=== PATIENT | male | born 1965 | race Caucasian/White ===

== ENCOUNTER → 2016-06-17 | Outpatient (CLI) | payer BC, MEDICARE ==
--- OUTSIDE RECORDS SUMMARY | 2016-06-17 11:23 | XMS REPORT | Continuity of Care Document ---
Author Author [facility] Address Unknown Phone Unavailable Allergies Medications Problems Date Dx Coded Attending Type Code Diagnosis Diagnosed By 03/17/2008 FATOUMATA BLOOD DO 272.4 HYPERLIPIDEMIA UNSPECIFIED 03/17/2008 FATOUMATA BLOOD DO 401.9 UNSPECIFIED ESSENTIAL HYPERTENSION 03/17/2008 FATOUMATA BLOOD DO 414.00 CORONARY ATHEROSCLEROSIS OF UNSPECIFIED TYPE OF VESSEL [place] 03/17/2008 FATOUMATA BLOOD DO 466.0 BRONCHITIS, ACUTE 04/28/2008 FATOUMATA BLOOD DO 786.50 CHEST PAIN 09/20/2008 FATOUMATA BLOOD DO 272.2 HYPERLIPIDEMIA, MIXED 09/20/2008 FATOUMATA BLOOD DO 401.1 HYPERTENSION, BENIGN ESSENTIAL 03/16/2009 FATOUMATA BLOOD DO 461.9 ACUTE SINUSITIS, UNSPECIFIED Procedures Results Encounters ACCT No. Visit Date/Time Discharge Status Pt. Type Provider Facility Loc./Unit Complaint [id number] 03/16/2009 13:51:00 03/16/2009 23: 59:59 CLS Outpatient FATOUMTAA BLOOD DO
== END ==
LOC: LAB 11:19
PROVIDERS: ATTEND Internal Medicine
DX: L73.9 Follicular disorder, unspecified (principal)
CPT/HCPCS: 87081

== ENCOUNTER 2020-03-18 16:21 | Emergency (ER) | payer BC, MEDICARE ==
[~2020-03-18] VITALS: Ht 177.8 cm; Wt 90.9 kg
--- NOTE | 2020-03-18 16:38 | ED Chest Pain ---
General Chief Complaint: Chest Pain Stated Complaint: CP Source: patient Exam Limitations: no limitations History of Present Illness Date Seen by Provider: Mar 18, 2020 Time Seen by Provider: 16:34 Initial Comments to ER with lower central chest pain that started this morning and is worse with laying flat and breathing. No shortness of breath no cough no fever no chills. Does have a history of a coronary stent [place] [address] Lima. Timing/Duration: intermittent Severity/Quality: moderate Activities at Onset: none ASA po MIXING PAN TENDER: No NTG SL MIXING PAN TENDER: No Allergies and Home Medications Allergies Coded Allergies: No Known Drug Allergies (Verified Allergy, Unknown, 03/08/08) Patient Home Medication List Home Medication List Reviewed: Yes Review of Systems Review of Systems Constitutional: see HPI; No chills, No fever EENTM: No Symptoms Reported Respiratory: See HPI; Denies Cough Cardiovascular: See HPI, Chest Pain Gastrointestinal: No Symptoms Reported Genitourinary: No Symptoms Reported Musculoskeletal: no symptoms reported Skin: no symptoms reported Psychiatric/Neurological: No Symptoms Reported Endocrine: No Symptoms Reported Hematologic/Lymphatic: No Symptoms Reported Past Imqueov-Cywjjg-Fzdldz Hx Patient Social History Recent Foreign Travel: No Contact w/Someone Who Travel: No Past Medical History Reproductive Disorders: No Physical Exam Vital Signs Vital Signs - First Documented 03/18/20 16:22 Pulse 96 Resp 18 B/P (MAP) 162/83 (109) Pulse Ox 96 O2 Delivery Room Air Capillary Refill : Height, Weight, BMI Height: '" Weight: lbs. oz. kg; BMI Method: General Appearance: No Apparent Distress, WD/WN Neck: Full Range of Motion, Normal Inspection Respiratory: No Accessory Muscle Use, No Respiratory Distress Gastrointestinal: Normal Bowel Sounds, Non Tender, Soft Extremity: Normal Capillary Refill, Normal Inspection Neurologic/Psychiatric: Alert, Oriented x3 Skin: Normal Color, Warm/Dry Progress/Results/Core Measures Results/Orders Lab Results Laboratory Tests Test 03/18/20 16:29 03/18/20 18:30 Range/Units White Blood Count 13.0 H 4.3-11.0 10^3/uL Red Blood Count 4.20 L 4.30-5.52 10^6/uL Hemoglobin 13.7 13.3-17.7 g/dL Hematocrit 40 40-54 % Mean Corpuscular Volume 96 80-99 fL Mean Corpuscular Hemoglobin 33 25-34 pg Mean Corpuscular Hemoglobin Concent 34 32-36 g/dL Red Cell Distribution Width 12.3 10.0-14.5 % Platelet Count 168 130-400 10^3/uL Mean Platelet Volume 11.3 9.0-12.2 fL Immature Granulocyte % (Auto) 1 % Neutrophils (%) (Auto) 70 42-75 % Lymphocytes (%) (Auto) 20 12-44 % Monocytes (%) (Auto) 9 0-12 % Eosinophils (%) (Auto) 0 0-10 % Basophils (%) (Auto) 0 0-10 % Neutrophils # (Auto) 9.1 H 1.8-7.8 10^3/uL Lymphocytes # (Auto) 2.6 1.0-4.0 10^3/uL Monocytes # (Auto) 1.1 H 0.0-1.0 10^3/uL Eosinophils # (Auto) 0.0 0.0-0.3 10^3/uL Basophils # (Auto) 0.0 0.0-0.1 10^3/uL Immature Granulocyte # (Auto) 0.1 0.0-0.1 10^3/uL Prothrombin Time 14.0 12.2-14.7 SEC INR Comment 1.0 0.8-1.4 Activated Partial Thromboplast Time 30 24-35 SEC Sodium Level 134 L 135-145 MMOL/L Potassium Level 4.5 3.6-5.0 MMOL/L Chloride Level 99 98-107 MMOL/L Carbon Dioxide Level 22 21-32 MMOL/L Anion Gap 13 5-14 MMOL/L Blood Urea Nitrogen 20 H 7-18 MG/DL Creatinine 1.23 0.60-1.30 MG/DL Estimat Glomerular Filtration Rate > 60 BUN/Creatinine Ratio 16 Glucose Level 160 H 70-105 MG/DL Calcium Level 9.4 8.5-10.1 MG/DL Corrected Calcium 9.1 8.5-10.1 MG/DL Magnesium Level 1.9 1.6-2.4 MG/DL Total Bilirubin 1.2 H 0.1-1.0 MG/DL Aspartate Amino Transf (AST/SGOT) 35 H 5-34 U/L Alanine Aminotransferase (ALT/SGPT) 54 0-55 U/L Alkaline Phosphatase 43 40-136 U/L Myoglobin 37.2 10.0-92.0 NG/ML Troponin I < 0.028 < 0.028 <0.028 NG/ML Total Protein 8.0 6.4-8.2 GM/DL Albumin 4.4 3.2-4.5 GM/DL My Orders Orders - JOSELUIS ROJAS APRN Cbc With Automated Diff (03/18/20 16:32) Magnesium (03/18/20 16:32) Chest 1 View, Ap/Pa Only (03/18/20 16:32) Ekg Tracing (03/18/20 16:32) Comprehensive Metabolic Panel (03/18/20 16:32) Myoglobin Serum (03/18/20 16:32) Protime With Inr (03/18/20 16:32) Partial Thromboplastin Time (03/18/20 16:32) O2 (03/18/20 16:32) Monitor-Rhythm Ecg Trace Only (03/18/20 16:32) Lipid Panel (03/19/20 06:00) Ed Iv/Invasive Line Start (03/18/20 16:32) Troponin I (03/18/20 16:32) Aspirin Chewable Tablet (Baby Aspirin Ch (03/18/20 16:45) Ketorolac Injection (Toradol Injection) (03/18/20 16:45) Labetalol Injection (Normodyne Injection (03/18/20 16:45) Troponin I (03/18/20 18:30) Ekg Tracing (03/18/20 19:02) Medications Given in ED Current Medications Medications Dose Ordered Sig/Agnes Route Start Time Stop Time Status Last Admin Dose Admin Aspirin 324 mg ONCE ONCE PO 03/18/20 16:45 03/18/20 16:46 DC 03/18/20 16:51 324 MG Ketorolac Tromethamine 30 mg ONCE ONCE IVP 03/18/20 16:45 03/18/20 16:46 DC 03/18/20 16:52 30 MG Labetalol HCl 20 mg ONCE ONCE IV 03/18/20 16:45 03/18/20 16:46 DC 03/18/20 16:54 20 MG Vital Signs/I&O 03/18/20 16:22 Pulse 96 Resp 18 B/P (MAP) 162/83 (109) Pulse Ox 96 O2 Delivery Room Air Departure Communication (Admissions) 2682-he is without chest pain or any symptoms. Heart rate down to 85 and blood pressure 125/85. We will recheck a troponin at 1830. 1914-symptoms are still very mild and only present when he takes a deep breath. Certainly this sounds pleuritic in nature but he has a history of coronary disease(bare metal stent to a large obtuse marginal branch of the left circumflex in 2002), he is hypertensive, hyperlipidemic and a smoker.I discussed the case with Dr. Cantrell, given risk factor would recommend observation overnight. 1935-I discussed with him the recommendation to stay in the hospital overnight for repeat troponin in the morning, echocardiogram and cardiology consult in the morning. Risks of going home would be permanent disability or , could have a heart attack overnight. He states he wants to go on home and will follow up as cardiology next week. Promises to return for any worsening. He agrees to sign out against advice. Impression Primary Impression: Chest pain Additional Impression: Coronary artery disease Disposition: HOME, SELF-CARE Condition: Stable Departure-Patient Inst. Decision time for Depature: 19:35 Referrals: TOÑO LIMA MD FACP FACC CCDS FATOUMATA BLOOD DO (PCP/Family) Primary Care Physician Patient Instructions: Chest Pain Add. Discharge Instructions: 1. Be sure to call Dr. Lima on Friday to make an appointment to be seen. Return to ER in the meantime for any worsening or recurrent symptoms. All discharge instructions reviewed with patient and/or family. Voiced understanding. Copy Copies To 1: FATOUMATA BLOOD PETER J APRN Mar 18, 2020 16:38
[2020-03-18 16:40] LABS: BASOPHILS % (AUTO) 0 % (0-10); EOSINOPHILS % (AUTO) 0 % (0-10); HEMATOCRIT 40 % (40-54); HEMOGLOBIN 13.7 g/dL (13.3-17.7); LYMPHOCYTES # (AUTO) 2.6 10^3/uL (1.0-4.0); LYMPHOCYTES % (AUTO) 20 % (12-44); MEAN CORPUSCULAR HEMOGLOBIN 33 pg (25-34); MEAN CORPUSCULAR HGB CONC 34 g/dL (32-36); MEAN CORPUSCULAR VOLUME 96 fL (80-99); MEAN PLATELET VOLUME 11.3 fL (9.0-12.2); MONOCYTES # (AUTO) 1.1 10^3/uL (0.0-1.0); MONOCYTES % (AUTO) 9 % (0-12); NEUTROPHILS # (AUTO) 9.1 10^3/uL (1.8-7.8); NEUTROPHILS % (AUTO) 70 % (42-75); PLATELET COUNT 168 10^3/uL (130-400)
[2020-03-18 16:45] LABS: ALBUMIN 4.4 GM/DL (3.2-4.5); CHLORIDE 99 MMOL/L (98-107); POTASSIUM 4.5 MMOL/L (3.6-5.0); SODIUM 134 MMOL/L (135-145)
[2020-03-18] MEDS ORDERED: LABETALOL HCL 20 MG/4 ML VIAL IV ONE (16:45)
[2020-03-18] MEDS ORDERED: KETOROLAC 30 MG/ML VIAL IVP ONE (16:45)
[2020-03-18] MEDS ORDERED: ASPIRIN 81 MG CHEW (CHILDREN'S ASA) PO ONE (16:45)
[2020-03-18 16:46] LABS: CALCIUM 9.4 MG/DL (8.5-10.1)
[2020-03-18 16:47] LABS: GLUCOSE 160 MG/DL (70-105)
[2020-03-18 16:48] LABS: CARBON DIOXIDE 22 MMOL/L (21-32)
[2020-03-18 16:49] LABS: BILIRUBIN,TOTAL 1.2 MG/DL (0.1-1.0)
[2020-03-18 16:51] LABS: ALKALINE PHOSPHATASE 43 U/L (40-136); CREATININE SERUM 1.23 MG/DL (0.60-1.30); GFR ESTIMATED > 60
[2020-03-18 16:52] LABS: BUN/CREATININE RATIO 16
[2020-03-18 16:54] LABS: ALANINE AMINOTRANSFERASE 54 U/L (0-55); MAGNESIUM 1.9 MG/DL (1.6-2.4)
--- NOTE | 2020-03-18 16:58 | Diagnostic Imaging Report ---
INDICATION: Chest pain. COMPARISON: Prior examination from 03/08/2008. FINDINGS: The heart size, mediastinal configuration, and pulmonary vascularity are within normal limits. There is no pleural effusion, pneumothorax, or pneumonia. The osseous structures are unremarkable. IMPRESSION: No acute cardiopulmonary abnormality. Dictated by: Dictated on workstation # [id number]
[2020-03-18 19:44] VITALS: BP 144/81
== END 2020-03-18 19:46 | disposition home or self-care (01) ==
LOC: EDUNIT# 16:21 → ER 16:23
DX: R07.9 Chest pain, unspecified (principal); I25.10 Atherosclerotic heart disease of native coronary artery without angina pectoris; Z95.5 Presence of coronary angioplasty implant and graft
CPT/HCPCS: 36415; 71045; 80053; 83735; 83874; 84484; 85025; 85610; 85730; 93005